=== PATIENT | male | born 1955 | race Caucasian/White ===

== ENCOUNTER 2020-10-22 12:22 | Outpatient (CLI) | payer OTHER, SELFPAY ==
[2020-10-22 12:29] VITALS: BP 142/102; PULSE 98; RESP 20; O2SAT 94
[2020-10-22 13:20] VITALS: BP 109/78; PULSE 77; TEMP 37.6; O2SAT 96
[2020-10-22 14:08] VITALS: BP 137/92; PULSE 88; RESP 16; TEMP 37.4; O2SAT 97
== END 2020-10-22 12:23 | disposition home or self-care (01) ==
PROVIDERS: Visit Provider Nurse Practitioner
DX: U07.1 COVID-19 (principal)
CPT/HCPCS: 96365